=== PATIENT | female | born 2005 | race Caucasian/White ===

== ENCOUNTER 2024-06-07 18:34 | Emergency (ER) | payer SELFPAY ==
[2024-06-07 18:36] VITALS: BP 140/91
[2024-06-07 19:38] VITALS: BP 123/71
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
== END 2024-06-07 19:40 | disposition home or self-care (01) ==
LOC: EMR 18:34
PROVIDERS: EMERGENCY PHYSICIAN Emergency Medicine
DX: M25.512 Pain in left shoulder (principal); V49.40XA Driver injured in collision with unspecified motor vehicles in traffic accident, initial encounter
CPT/HCPCS: 99283; 73030

== ENCOUNTER 2024-07-05 15:31 | Emergency (ER) | payer OTHER, SELFPAY ==
[2024-07-05 15:33] VITALS: BP 94/63
[2024-07-05 16:03] LABS: % Basophils 0.8 % (0-2); % Eosinophils 0.8 % (0-6); % Immature Granulocytes 0.3 % (0-0.5); % Lymphocytes 28.4 % (20.5-51.1); % Monocytes 3.9 % (1.7-9.3); % Neutrophils 65.8 % (42.2-75.2); Absolute Basophils 0.1 10^3/uL (0-0.2); Absolute Eosinophils 0.1 10^3/uL (0-0.7); Absolute Monocytes 0.3 10^3/uL (0.1-0.6); Absolute Neutrophils 4.7 10^3/uL (1.4-6.5); Hematocrit 37.5 % (37.0-47.0); Hemoglobin 12.5 g/dL (12.0-16.0); Mean Corp Hgb Conc. 33.3 g/dL (33.0-37.0); Mean Corpuscular Hgb 29.6 pg (27.0-31.0); Mean Corpuscular Volume 88.7 fL (81.0-99.0); Mean Platelet Volume 10.3 fL (7.4-10.4); Nucleated Red Blood Cells % 0 %; Platelet Count 237 10^3/uL (130-400); Red Blood Cell Count 4.23 10^6/uL (4.20-5.40); White Blood Cell Count 7.1 10^3/uL (4.8-10.8)
[2024-07-05 16:16] LABS: HCG, Serum Qualitative Screen Negative
[2024-07-05 16:23] LABS: ALT (SGPT) 17 U/L (0-35); AST (SGOT) 22 U/L (14-36); Albumin 4.6 g/dl (3.5-5.0); Alkaline Phosphatase 69 U/L (38-126); Blood Urea Nitrogen 11 mg/dl (7-17); Calcium 9.3 mg/dl (8.4-10.2); Carbon Dioxide 22 mmol/L (22-30); Chloride 103 mmol/L (98-107); Glucose 145 mg/dl (70-99); Potassium 3.6 mmol/L (3.5-5.1); Sodium 137 mmol/L (135-145); Total Bilirubin 0.3 mg/dl (0.2-1.3); eGFR > 60.00
[2024-07-05 16:55] LABS: Lipase 41 U/L (23-300)
--- NOTE | 2024-07-05 17:40 | ED.GENMED ---
History of Present Illness
General
Chief Complaint: Abdominal Pain
Source: patient
Exam Limitations: none
Time Seen by Provider: 07/05/24 17:05
Nursing documentation reviewed up to this point in time: agreed with
History of Present Illness
History of Present Illness:
Patient to ED wt complaint of lower abdominal pain. Symptoms started suddenly approx 4 hours ago. +diarrhea. States she has had ovarian cysts before but pain is much worse. Denies fever/chills. No vomiting. Brought to ED by father for eval
Past History
Past History
ED Past Medical History: None
ED Past Surgical History: None
Review of Systems
Review of Systems
Allergies reviewed?: Yes
All Other Systems: ROS reviewed and negative except as documented in HPI and ROS
Constitutional: Reports no symptoms
EENT: Reports no symptoms
Respiratory: Reports no symptoms
Cardiac: Reports no symptoms
ABD/GI: Reports abdominal pain (Lower abd. pain) and diarrhea
: Reports no symptoms
Musculoskeletal: Reports no symptoms
Skin: Reports no symptoms
Neurological: Reports no symptoms
Psychiatric: Reports no symptoms
Phy Exam
General Physical Exam
General Presentation: well appearing and mild distress
General age: appears stated age
General Skin: warm and dry
General Habitus: normal
General Mental: alert
Cardiovascular Exam
Cardiovascular Exam: regular rate/rhythm and no edema
Gastrointestinal Exam
Gastrointestinal Exam: normal bowel sounds, soft, no organomegaly, no pulsatile mass and no cva tenderness
Palpation: left upper quadrant: No tenderness, left lower quadrant: Moderate tenderness, right upper quadrant: No tenderness and right lower quadrant: Moderate tenderness
Musculoskeletal Exam
Musculoskeletal Exam: full ROM
Skin Exam
Skin Exam: normal color, warm/dry and no rash
Psychiatric Exam
Psychiatric Exam: normal mood/affect
Course
Orders/Labs/Results
Orders:
Orders
07/05/24
US Pelvis Transvaginal Only Urgent
07/05/24 15:38
Test Result ONCE
07/05/24 15:44
Complete Blood Count/With Diff Urgent
Comprehensive Metabolic Panel Urgent
HCG, Serum Qualitative Screen Urgent
Lipase Urgent
07/05/24 17:36
Ondansetron Injectable [Zofran] 4 mg IV NOW STA
US Abdomen - Appendix Only Urgent
Comment:
Reason For Exam: lower abd. pain
07/05/24 17:37
0.9% Sodium Chloride 1000 ml [Nss] 1,000 ml IV BOLUS
Pelvis (Non Obstetric) US [US Pelvis Only (non-obstetric)] Urgent
Comment:
Reason For Exam: pain
07/05/24 17:44
COVID-19 Antigen Urgent
Source: Nasal Swab
Influenza A+B Rapid Molecular Urgent
MANJIT Source: Nasal Swab
Specimen Description:
07/05/24 17:55
Add On- LAB Urgent
Tests Added?: serum HCG qualitative
07/05/24 21:33
Urinalysis Reflex To Culture Urgent
Date Specimen was Collected: 07/05/24
Time Specimen was Collected: 21:28
Urine Microscopic Reflex Cult Urgent
Urine Culture Urgent
MANJIT Source: U
Specimen Description:
Date Specimen was Collected: 07/05/24
Time Specimen was Collected: 21:28
07/05/24 22:13
Ketorolac [Toradol] 30 mg IV NOW STA
07/05/24 23:50
Acetaminophen [Tylenol] 1,000 mg .ROUTE .STK-MED ONE
07/05/24 23:52
Acetaminophen [Tylenol] 1,000 mg PO NOW STA
Abnormal Lab Results
07/05/24 07/05/24
15:44 21:33
Glucose 145 H mg/dl
(70-99)
Urine Ketones 2+ A
(Negative)
Ur Occult Blood Reflex 3+ A
(Negative)
Urine RBC 3-6 A /HPF
(0-2)
Urine Bacteria (Reflex) Moderate A
(Negative)
07/05/24 15:44
07/05/24 15:44
Vital Signs
Initial and Last Documented VS:
Initial Vital Signs
Temp Pulse Resp BP Pulse Ox
97.4 F 60 18 94/63 100
07/05/24 15:33 07/05/24 15:33 07/05/24 15:33 07/05/24 15:33 07/05/24 15:33
Last Documented Vital Signs
Temp Pulse Resp BP Pulse Ox
98.5 F 78 20 119/81 98
07/05/24 19:24 07/06/24 01:06 07/06/24 01:06 07/06/24 01:06 07/06/24 01:08
*Radiology
Radiology exam reviewed: radiology read reviewed
*Pulse Oximetry
Patient hypoxic: no
*Critical Care Note
Total Time (30-74mins, 75-104mins- exclusive of procedures): Not Applicable
Update Note
Update Note:
No evidence of appendicitis on US. Unfortunately the right ovary was not identified. Since pain is present in this area she was returned to US for repeat scanning of this area. This was explained to patient and father and they are agreeable to
returning to US
ED Attending Note
-
Portions of this chart may have been created with voice recognition software.� Occasional wrong word or��sound alike� substitutions may have occurred due to the inherent limitations of voice recognition software.
Discharge Plan
Departure
Patient Disposition: Home (Routine Discharge)
Date of Disposition: 07/06/24
Time of Disposition: 00:48
Patient with high blood pressure during this ER visit?: No
Condition: Good
Covid-19: Not Applicable
Discharge Problem:
Abdominal pain
Instructions: Clear Liquid Diet, Abdominal Pain
Prescriptions:
No Action
No Current Medications
0
Referrals:
NONE,* [Family Provider] -
Activity Restrictions/Additional Instructions:
Follow up with your family doctor. Return to the emergency department immediately for any changes in/worsening of your symptoms.
Interventions
Interventions:
*Risk Screen - Suicide Last Done: 07/05/24 15:33
*General Assessment Last Done: 07/05/24 15:33
*Neglect/Abuse Screening Last Done: 07/05/24 15:33
ED- Fall Risk Assessment Last Done: 07/05/24 19:24
*ED COVID-19 Vaccine History Last Done: 07/05/24 17:59
*Nursing Disposition Last Done: 07/06/24 01:08
DX-Fzgeej-Tanmtzcnpn Assessment Last Done: 07/05/24 19:24
Discharge Date and Time
Discharge Date/Time: 07/06/24 01:09
Print Language: ITALIAN
[2024-07-05] MEDS: NSS 1000 IV (17:41)
[2024-07-05] MEDS: ZOFRAN 4 MG IV (17:47)
[2024-07-05 17:55] VITALS: BP 112/66
[2024-07-05 18:08] LABS: COVID-19 Antigen Negative (Negative)
[2024-07-05 19:24] VITALS: BP 111/58
[2024-07-05 21:35] VITALS: BP 115/63
[2024-07-05 21:40] LABS: Urine Albumin Negative (Neg - Trace); Urine Bilirubin Negative (Negative); Urine Character Clear (Clear); Urine Color Yellow; Urine Glucose Negative (Negative); Urine Ketone 2+ (Negative); Urine Leukocyte Negative (Negative); Urine Nitrite Negative (Negative); Urine Occult Blood 3+ (Negative); Urine Specific Gravity 1.015 (<1.030); Urine Urobilinogen Negative (Neg - 1+); Urine pH 6.5 (5.0-9.0)
[2024-07-05 21:47] LABS: Urine Mucus Many; Urine Squamous Cell 16-20 /LPF (Few)
[2024-07-05 21:49] LABS: Urine White Cell 0-2 /HPF (0-5)
[2024-07-05 21:50] LABS: Urine Amorphous Seen; Urine Bacteria Moderate (Negative)
[2024-07-05] MEDS: TORADOL 30 MG IV (22:17)
[2024-07-05 22:21] VITALS: BP 112/74
[2024-07-05] MEDS: TYLENOL 1000 MG PO (23:52)
[2024-07-06 01:06] VITALS: BP 119/81
== END 2024-07-06 01:09 | disposition home or self-care (01) ==
LOC: EMR 15:31
PROVIDERS: Nurse Practitioner; EMERGENCY PHYSICIAN Student in an Organized Health Care Education/Training Program
DX: R10.30 Lower abdominal pain, unspecified (principal); R19.7 Diarrhea, unspecified
CPT/HCPCS: 99284; 96374; 96375; 96361; 76705; 76830; 76856; 80053; 81003; 81015; 83690; 84703; 85025; 87086; 87502; 87811